=== PATIENT | female | born 1995 | race Caucasian/White ===

== ENCOUNTER 2016-12-29 17:25 | Emergency (ER) | payer BC ==
[~2016-12-29] VITALS: Ht 167.6 cm; Wt 56.7 kg
[2016-12-29 17:31] VITALS: TEMP 37.1; Ht 167.6 cm; Wt 56.7 kg
[2016-12-29] MEDS ORDERED: IBUP1TAB51 PO (18:03)
[2016-12-29] MEDS ORDERED: DOXE1TAB2 PO (18:03)
[2016-12-29] MEDS ORDERED: ONDA8TAB6 PO (18:03)
[2016-12-29] MEDS ORDERED: HYOS0.1255 PO (18:03)
[2016-12-29] MEDS ORDERED: AMPH10CA3 PO (18:03)
--- NOTE | 2016-12-29 19:11 | DIAGNOSTIC IMAGING REPORT ---
RIGHT FOOT 3 VIEWS CLINICAL HISTORY: Numbness, tingling, and pain in the right foot of over a months duration. FINDINGS: 3 views of the right foot are obtained. No prior studies are available for comparison at the time of dictation. The skeletal structures are well mineralized. No acute fracture is seen. There is chronic posterior matter deformity of the fourth metatarsal tarsal with a buttress plate in place. A buttress plate is also partially visualized in the distal fibula. Orthopedic hardware appears intact. The joint spaces of the foot appear preserved. An os trigonum is incidentally noted. The overlying soft tissues are within normal limits. IMPRESSION: 1. No acute bony abnormality is seen in the right foot. 2. Chronic posttraumatic and postoperative changes as above. Electronically signed by: Chris Luevano M.D. 12/29/2016 7:10 PM Dictated Date/Time: 12/29/2016 7:08 PM
[2016-12-29 20:00] VITALS: BP 128/50; PULSE 78; O2SAT 97
--- NOTE | 2016-12-29 23:40 | EMERGENCY ROOM VISIT NOTE ---
History First contact with patient: 17:42 Chief Complaint: FOOT PAIN Stated Complaint: FOOT NUMBNESS, PAIN, TINGLING, PURPLE IN COLOR History of Present Illness The patient is a 21 year old female who presents to the Emergency Room with complaints of right foot pain, purplish color of her toes and tingling. The patient reports that she did have 2 reconstructive surgeries of her ankle and foot approximately 3 years ago. She has had no persistent pain or other complications from her surgery. She has noticed developing numbness and tingling over the past month, and is now becoming more painful. The pain is worsened with ambulation. She denies any known trauma to the foot or ankle region. She denies any history of Raynaud's disease. She rates her discomfort a 4 out of 10. Review of Systems 10 system review was performed and was negative except for pertinent positives and negatives as indicated in history of present illness Past Medical/Surgical History Medical Problems: (1) Narcolepsy Surgical Problems: (1) History of foot surgery Family History Raynaud's syndrome Social History Smoking Status: Never Smoker Alcohol Use: none Marital Status: single Occupation Status: [employer] student Current/Historical Medications Scheduled Amphetamine-Dextroamphetamine 10MG (Adderall Xr 10MG), 10 MG PO DAILY Doxepin Hcl (Sleep) (Silenor), 1 TAB PO HS Ibuprofen-Famotidine (Duexis), 1 TAB PO DAILY Scheduled PRN Hyoscyamine Sulfate (Levsin), 1 TAB PO DAILY PRN for stomach pain Ondansetron Hcl (Zofran), 8 MG PO DAILY PRN for Nausea Allergies Coded Allergies: No Known Allergies (Unverified , 12/29/16) Physical Exam Vital Signs Date Time Temp Pulse Resp B/P Pulse Ox O2 Delivery O2 Flow Rate FiO2 12/29/16 20:00 78 16 128/50 97 Room Air 12/29/16 17:31 37.1 96 16 119/73 100 Room Air Pain Rating (0-10): 4.0 Physical Exam CONSTITUTIONAL: Healthy and well nourished. Alert and oriented X 3 with a flat affect. HEENT: Normocephalic, atraumatic. Pupils equal, round and reactive. NECK: Full active range of motion without discomfort. RESPIRATORY: Clear to auscultation bilaterally with no wheezing, crackles, rhonchi or stridor. CARDIOVASCULAR: Regular rate and rhythm with no murmurs, rubs or gallops. MUSCULOSKELETAL: Examination of the right foot and ankle region shows surgical incisions over the lateral malleolus and dorsal fourth metatarsal region. Surgical incisions have healed well. No palpable osteophyte formations noted. The patient has generalized tenderness to palpation through the posterior tibial and peroneal tendons. She also has mild tenderness over the lateral aspect of the foot. She has mild discoloration of the lateral foot and toes. Capillary refill of the toes is less than 2 seconds. Posterior tibialis and dorsalis pedis pulses are strong and bounding. Weightbearing worsens the patient's discomfort. No tenderness to palpation through the calcaneus or Achilles tendon. INTEGUMENTARY: No rash or other significant dermatologic conditions noted. NEUROLOGIC: Right ankle, foot and toes are sensory intact. Medical Decision & Procedures ER Provider Diagnostic Interpretation: My interpretation of right foot x-rays does not show any acute fractures or other concerning findings. Visible portions of the ankle were also normal. Radiologist report is as follows: RIGHT FOOT 3 VIEWS CLINICAL HISTORY: Numbness, tingling, and pain in the right foot of over a months duration. FINDINGS: 3 views of the right foot are obtained. No prior studies are available for comparison at the time of dictation. The skeletal structures are well mineralized. No acute fracture is seen. There is chronic posterior matter deformity of the fourth metatarsal tarsal with a buttress plate in place. A buttress plate is also partially visualized in the distal fibula. Orthopedic hardware appears intact. The joint spaces of the foot appear preserved. An os trigonum is incidentally noted. The overlying soft tissues are within normal limits. IMPRESSION: 1. No acute bony abnormality is seen in the right foot. 2. Chronic posttraumatic and postoperative changes as above. ED Course Patient history and physical exam were performed. Nurse's notes were reviewed. Vital signs were reviewed and were normal. The patient refused any analgesics while in the emergency department. X-rays of the right foot were normal. Prior surgical changes and hardware are noted. Possible causes for the patient's discomfort were discussed. This includes competitions from her surgery or even possibility of Raynaud's syndrome. The patient requested that I speak with her parents. The case was further discussed with the patient's father. He reports that her sister developed Raynaud's syndrome in her late teens. The patient is also currently being worked up for other possible rheumatologic conditions. I did explain to the father that her physical exam is suggestive of right not syndrome. However, I also explained that her symptoms could also be secondary to her foot surgery. The patient was offered crutches but she refused. She was instructed to limit weightbearing on the foot until she follows up with her orthopedic surgeon back home. The father reports that he would schedule an appointment. The patient was given a copy of her x-rays on disc. She was also provided local orthopedic contact information if she wishes to receive further follow-up care locally. She was encouraged to take ibuprofen or Tylenol as needed for pain. She was encouraged to keep the foot warm. It is to be rather cold over the next several days. Return to the emergency department for any significant and worsening changes. The patient voiced understanding of all discharge instructions, and rated her discomfort a 4 out of 10 at the time of discharge. Medical Decision See previous section Impression Primary Impression: Right foot pain Additional Impression: History of foot surgery Departure Information Dispostion Home / Self-Care Condition GOOD Referrals Biju Cyr D.O. Forms HOME CARE DOCUMENTATION FORM, IMPORTANT VISIT INFORMATION Patient Instructions My [employer] Additional Instructions Minimize weight on foot as much as possible. Do not apply ice to the foot. Keep foot warm. Suggest follow-up with your orthopedic surgeon over spring for reevaluation. You are welcome to follow-up with [facility] (Dr. Cyr) for further local follow-up as needed. Problem Qualifiers
== END 2016-12-29 20:00 | disposition home or self-care (01) ==
LOC: C.EDB 17:27 → C.EDD 20:00
DX: M79.671 Pain in right foot (principal); Z98.890 Other specified postprocedural states; G47.419 Narcolepsy without cataplexy; Z79.899 Other long term (current) drug therapy

== ENCOUNTER 2017-03-17 16:27 | Emergency (ER) | payer BC ==
[~2017-03-17] VITALS: Ht 167.6 cm; Wt 57.7 kg
[~2017-03-17 16:27] MED LIST: AMPH10CA3 PO; DOXE1TAB2 PO; HYOS0.1255 PO; IBUP1TAB51 PO; ONDA8TAB6 PO
[2017-03-17 16:31] VITALS: TEMP 37.6; Ht 167.6 cm; Wt 57.7 kg
[2017-03-17] MEDS ORDERED: SODIUM CHLORIDE 0.9% 1000ML 1,000 ML IV STA (17:31)
[2017-03-17] MEDS ORDERED: MoRPHine SULFATE 4 MG/ML 1 ML CARP\\VIAL IV STA (17:31)
[2017-03-17 17:39] VITALS: O2SAT 100
[2017-03-17 17:45] LABS: BASO % 0.4 %; BASO ABS # 0.02 K/uL (0-0.2); COMPLETE YES; EOS % 1.5 %; HEMATOCRIT 35.9 % (37-47); LYMPH % 26.6 %; LYMPH ABS # 1.45 K/uL (1.2-3.4); MEAN CELL VOLUME 92.1 fL (80-100); MEAN CORPUSCULAR HEMOGLOBIN 33.1 pg (25-34); MEAN CORPUSCULAR HGB CONC 35.9 g/dl (32-36); MEAN PLATELET VOLUME 9.8 fL (7.4-10.4); MONO % 5.5 %; PLATELET COUNT 205 K/uL (130-400); WHITE BLOOD COUNT 5.45 K/uL (4.8-10.8)
[2017-03-17 17:56] LABS: PROTHROMBIN TIME (PATIENT) 10.3 SECONDS (9.0-12.0)
[2017-03-17 18:03] LABS: BUN/CREATININE RATIO 11.6 (10-20); CALCIUM 9.2 mg/dl (8.5-10.1); CREATININE 0.89 mg/dl (0.60-1.20); POTASSIUM 3.6 mmol/L (3.5-5.1)
[2017-03-17 18:06] LABS: C-REACTIVE PROTEIN 0.44 mg/dl (0-0.29)
[2017-03-17] MEDS ORDERED: KETOROLAC TROMETHAMINE 30 MG/ML VIAL IV STA (18:15)
[2017-03-17] MEDS ORDERED: MELO15TA4 PO (18:17)
[2017-03-17] MEDS ORDERED: CYCL10TA6 PO (18:17)
--- NOTE | 2017-03-17 18:48 | DIAGNOSTIC IMAGING REPORT ---
CHEST 2 VIEWS ROUTINE HISTORY: Left-sided CHEST PAIN COMPARISON: None. FINDINGS: The lungs are clear. Cardiac silhouette is normal in size. No pleural effusions. No pneumothorax. Mild S-shaped scoliosis. IMPRESSION: No acute process. Electronically signed by: Marty Younger M.D. 03/17/2017 6:47 PM Dictated Date/Time: 03/17/2017 6:45 PM
[2017-03-17 18:59] LABS: PREG INTERNAL NEGATIVE QC NEG CLEAR BACKGROUND; PREG INTERNAL POSITIVE QC POS CONTROL LINE
[2017-03-17 19:57] LABS: URINE APPEARANCE CLEAR (CLEAR); URINE BILIRUBIN NEG (NEG); URINE COLOR YELLOW; URINE NITRITE NEG (NEG); URINE PH 7.5 (4.5-7.5); URINE SPECIFIC GRAVITY 1.013 (1.000-1.030); UROBILINOGEN NEG (NEG)
[2017-03-17 20:15] LABS: MANUAL MICROSCOPIC REQUIRED? NO; REVIEW REQ? NO
--- NOTE | 2017-03-17 20:39 | EMERGENCY ROOM VISIT NOTE ---
History First contact with patient: 17:15 Chief Complaint: CHEST PAIN Stated Complaint: CHEST PAIN Nursing Triage Summary: Burning left chest pain History of Present Illness The patient is a 21 year old female who presents to the Emergency Room with complaints of chest pain that started around 2 PM today. She describes the pain as burning and sharp, constant with intermittent worsening pains, left- sided chest, worse with taking a deep breath, lying flat, and movement, 7/10. She has not tried any medications today to treat her pain. She states that she has recently started seeing a housing and residence life director where she had a positive AMEE blood test, but has not yet received a diagnosis. She states that her housing and residence life director told her if she developed chest pain that she should go to the ER to be evaluated. She denies fevers, chills, cough, hemoptysis, shortness of breath, palpitations, syncope, leg pain or swelling, abdominal pain, nausea/vomiting, diarrhea, urinary complaints. She denies any trauma to the area. She denies any recent long travel, she does not use any exogenous estrogen. Review of Systems GENERAL: Denies fevers, chills, malaise, fatigue, unintentional weight changes. HEENT: Denies dizziness, visual problems, hearing loss, tinnitus. Denies difficulty swallowing or oral lesions. PULMONARY: Denies cough, shortness of breath, sputum production or hemoptysis. CARDIOVASCULAR: + Chest pain. Denies chest pain, palpitations, syncope, dyspnea on exertion, orthopnea or peripheral edema. GASTROINTESTINAL: Denies diarrhea, constipation, nausea, vomiting, or abdominal pain. GENITOURINARY: Denies dysuria, frequency, urgency or nocturia. NEUROLOGIC: Denies history of epilepsy, CVA, TIA or chronic headaches. MUSCULOSKELETAL: Denies history of joint tenderness/swelling. SKIN: Denies rashes or lesions. PSYCHIATRIC: Denies history of depression or mental illness. ENDOCRINE: Denies history of diabetes, thyroid disorders, abnormal hair growth or sexual dysfunction. Past Medical/Surgical History Medical Problems: (1) Narcolepsy Surgical Problems: (1) History of foot surgery Family History Raynaud's syndrome Social History Smoking Status: Never Smoker Alcohol Use: none Marital Status: single Occupation Status: [employer] student Current/Historical Medications Scheduled Amphetamine-Dextroamphetamine 10MG (Adderall Xr 10MG), 30 MG PO DAILY Cyclobenzaprine Hcl (Flexeril), 10 MG PO HS Doxepin Hcl (Sleep) (Silenor), 1 TAB PO HS Meloxicam (Meloxicam), 1 TAB PO DAILY Scheduled PRN Hyoscyamine Sulfate (Levsin), 1 TAB PO DAILY PRN for stomach pain Ondansetron Hcl (Zofran), 8 MG PO DAILY PRN for Nausea Allergies Coded Allergies: No Known Allergies (Unverified , 03/17/17) Physical Exam Vital Signs Date Time Temp Pulse Resp B/P Pulse Ox O2 Delivery O2 Flow Rate FiO2 03/17/17 21:00 94 18 130/78 100 Room Air 03/17/17 18:59 99 18 131/81 100 Room Air 03/17/17 17:39 100 Room Air 03/17/17 16:33 Room Air 03/17/17 16:31 37.6 118 16 135/87 100 Room Air Physical Exam CONSTITUTIONAL: No acute distress. Well appearing and well nourished. Alert and oriented X 4 with normal affect. HEENT: Normocephalic, atraumatic. Pupils equal, round and reactive to light, EOMI. TMs normal. Pharynx normal. Moist mucous membranes. NECK: Supple, full active range of motion without discomfort. RESPIRATORY: Clear to auscultation bilaterally with no wheezing, crackles, rhonchi or stridor. Equal expansion bilaterally. CARDIOVASCULAR: Regular rate and rhythm with no murmurs, rubs or gallops. Normal peripheral perfusion. No edema. CHEST WALL: No ecchymosis, no crepitus, no deformity. Tenderness to palpation of the left anterior chest wall, reproduces complaint. GASTROINTESTINAL: Soft, nontender, nondistended. Bowel sounds present in all quadrants. MUSCULOSKELETAL: Full range of motion of all joints without discomfort. INTEGUMENTARY: No rash or other significant dermatologic conditions noted. NEUROLOGIC: Cranial nerves II-XII grossly intact. No focal neurologic deficits noted. Medical Decision & Procedures ER Provider Diagnostic Interpretation: CHEST 2 VIEWS ROUTINE HISTORY: Left-sided CHEST PAIN COMPARISON: None. FINDINGS: The lungs are clear. Cardiac silhouette is normal in size. No pleural effusions. No pneumothorax. Mild S-shaped scoliosis. IMPRESSION: No acute process. Laboratory Results 03/17/17 17:34 Red Blood Count 3.90, Mean Corpuscular Volume 92.1, Mean Corpuscular Hemoglobin 33.1, Mean Corpuscular Hemoglobin Concent 35.9, Mean Platelet Volume 9.8, Neutrophils (%) (Auto) 66.0, Lymphocytes (%) (Auto) 26.6, Monocytes (%) (Auto) 5.5, Eosinophils (%) (Auto) 1.5, Basophils (%) (Auto) 0.4, Neutrophils # (Auto) 3.60, Lymphocytes # (Auto) 1.45, Monocytes # (Auto) 0.30, Eosinophils # (Auto) 0.08, Basophils # (Auto) 0.02 03/17/17 17:34 Test 03/17/17 17:34 03/17/17 17:39 03/17/17 19:30 White Blood Count 5.45 K/uL (4.8-10.8) Red Blood Count 3.90 M/uL (4.2-5.4) Hemoglobin 12.9 g/dL (12.0-16.0) Hematocrit 35.9 % (37-47) Mean Corpuscular Volume 92.1 fL (80-100) Mean Corpuscular Hemoglobin 33.1 pg (25-34) Mean Corpuscular Hemoglobin Concent 35.9 g/dl (32-36) Platelet Count 205 K/uL (130-400) Mean Platelet Volume 9.8 fL (7.4-10.4) Neutrophils (%) (Auto) 66.0 % Lymphocytes (%) (Auto) 26.6 % Monocytes (%) (Auto) 5.5 % Eosinophils (%) (Auto) 1.5 % Basophils (%) (Auto) 0.4 % Neutrophils # (Auto) 3.60 K/uL (1.4-6.5) Lymphocytes # (Auto) 1.45 K/uL (1.2-3.4) Monocytes # (Auto) 0.30 K/uL (0.11-0.59) Eosinophils # (Auto) 0.08 K/uL (0-0.5) Basophils # (Auto) 0.02 K/uL (0-0.2) RDW Standard Deviation 41.8 fL (36.4-46.3) RDW Coefficient of Variation 12.3 % (11.5-14.5) Immature Granulocyte % (Auto) 0.0 % Immature Granulocyte # (Auto) 0.00 K/uL (0.00-0.02) Prothrombin Time 10.3 SECONDS (9.0-12.0) Prothromb Time International Ratio 1.0 (0.9-1.1) Activated Partial Thromboplast Time 25.8 SECONDS (21.0-31.0) Partial Thromboplastin Ratio 1.0 Anion Gap 6.0 mmol/L (3-11) Est Creatinine Clear Calc Drug Dose 91.1 ml/min Estimated GFR () 107.4 Estimated GFR (Non- 92.6 BUN/Creatinine Ratio 11.6 (10-20) Calcium Level 9.2 mg/dl (8.5-10.1) Total Bilirubin 0.2 mg/dl (0.2-1) Direct Bilirubin 0.1 mg/dl (0-0.2) Aspartate Amino Transf (AST/SGOT) 12 U/L (15-37) Alanine Aminotransferase (ALT/SGPT) 19 U/L (12-78) Alkaline Phosphatase 59 U/L (45-117) C-Reactive Protein 0.44 mg/dl (0-0.29) Total Protein 7.7 gm/dl (6.4-8.2) Albumin 4.2 gm/dl (3.4-5.0) Lipase 106 U/L (73-393) Human Chorionic Gonadotropin, Qual NEG (NEG) Bedside D-Dimer 62 ng/mlFEU (0-450) Bedside Troponin I 0.000 ng/ml (0-0.045) Urine Color YELLOW Urine Appearance CLEAR (CLEAR) Urine pH 7.5 (4.5-7.5) Urine Specific [place] 1.013 (1.000-1.030) Urine Protein NEG (NEG) Urine Glucose (UA) NEG (NEG) Urine Ketones NEG (NEG) Urine Occult Blood NEG (NEG) Urine Nitrite NEG (NEG) Urine Bilirubin NEG (NEG) Urine Urobilinogen NEG (NEG) Urine Leukocyte Esterase NEG (NEG) Medications Administered Medications (Trade) Dose Ordered Sig/Dylan Route Start Time Stop Time Status Last Admin Dose Admin Sodium Chloride (Nss 1000ml) 1,000 ml @ 999 mls/hr Q1H1M STAT IV 03/17/17 17:31 03/17/17 18:31 DC 03/17/17 17:31 999 MLS/HR Morphine Sulfate (MoRPHine SULFATE INJ) 4 mg NOW STAT IV 03/17/17 17:31 03/17/17 17:37 DC 03/17/17 17:31 4 MG Ketorolac Tromethamine (Toradol Inj) 15 mg NOW STAT IV 03/17/17 18:15 03/17/17 18:16 DC 03/17/17 18:15 15 MG Acetaminophen/ Hydrocodone Bitart ([place] 5/325 Tab) 1 tab NOW STAT PO 03/17/17 20:46 03/17/17 20:47 DC 03/17/17 20:59 1 TAB Acetaminophen/ Hydrocodone Bitart ([place] 5/325mg Home Pack) 1 homepack UD ONCE PO 03/17/17 21:00 03/17/17 21:01 DC 03/17/17 20:59 1 HOMEPACK ECG Indication: chest pain Rate (beats per minute): 105 Rhythm: sinus tachycardia Findings: no acute ischemic change, no ectopy, other (possible right atrial enlargement) Comparison ECG Date: no prior available Medical Decision CC: Patient presenting with complaint of chest pain Interpretation of Labs: No leukocytosis, no anemia, no significant electrolyte abnormalities, normal renal function, normal liver enzymes, negative troponin, negative d-dimer. Differential Diagnosis: Includes, but not limited to pericarditis, myocarditis, endocarditis, anxiety, musculoskeletal pain, pulmonary embolism, pneumothorax, costochondritis, pneumonia; less likely ACS. Summary: Patient was evaluated at bedside, history of physical exam performed. Patient is alert and in no acute distress. She describes a pleuritic type chest pain that also has a musculoskeletal component. She is concerned for possible lupus related issue with chest pain. Normal heart sounds, no murmur or rub heard, lungs clear. Orders were placed at bedside for labs, UA, IV fluid bolus, IV toradol to evaluate and treat for possible pericarditis/myocarditis, pleuritis, D-dimer to eval for possible PE. Unable to perc out due to tachycardia, but otherwise low well's score without any other risk factors for PE. Patient discussed with Dr. Jesus, who agrees with my assessment and plan. Labs reviewed, interpretation as above, no acute abnormalities. Chest x-ray is unremarkable, no cardiomegaly, no pneumonia. EKG shows sinus tachycardia no ischemic changes, no findings concerning for pericarditis/myocarditis. Troponin is negative, d-dimer is negative. I suspect patient most likely has pleuritic pain in combination with costochondritis given the reproducibility of her pain with palpation. Patient reports minimal pain improvement with Toradol, therefore a dose of [place] was given and she was provided with [place] take home pack for continued pain management as needed. Patient was updated on all results and plan for discharge, all questions answered and I also spoke over the phone with her father and answered all of his questions. Patient was instructed to follow closely with her PCP and housing and residence life director, and given return precautions, she verbalized understanding. Impression Primary Impression: Left sided chest pain Additional Impression: Pleurisy Departure Information Dispostion Home / Self-Care Condition GOOD Referrals Elli Solis M.D. (PCP) Patient Instructions ED Chest Pain Pleurisy, My [facility] Additional Instructions You may continue to take her prescribed Mobic daily to help treat your chest pain. You may take the [place] one tablet every 6 hours as needed for severe pain. Do not drive, operate machinery, or drink alcohol while taking this as it may make you drowsy. If you need long-term pain control with narcotics, he will have to receive a prescription for your primary care doctor. You may also try ice or heat to the area of chest pain for comfort. Drink plenty of fluids to stay well hydrated. Follow up closely with your PCP and your housing and residence life director in the next few days. Please return to the ER for worsening symptoms, including severe worsening chest pain, shortness of breath, severe dizziness or passing out, vomiting or coughing up blood, fevers/chills/feeling ill, or any other concerns. Problem Qualifiers
[2017-03-17] MEDS ORDERED: HYDROCODONE/ACETAMOPHEN 5/325MG TAB PO STA (20:46)
[2017-03-17 21:00] VITALS: BP 130/78; PULSE 94; O2SAT 100
[2017-03-17] MEDS ORDERED: NORCO 5/325MG HOME PACK PO ONE (21:00)
== END 2017-03-17 21:11 | disposition home or self-care (01) ==
LOC: C.EDB 16:29 → C.EDC 21:11
DX: G47.419 Narcolepsy without cataplexy (principal); R07.9 Chest pain, unspecified; R09.1 Pleurisy

== ENCOUNTER 2017-07-14 11:26 | Emergency (ER) | payer BC ==
[~2017-07-14] VITALS: Ht 167.6 cm; Wt 55.7 kg
[~2017-07-14 11:26] MED LIST changes: +CYCL10TA6 PO; -IBUP1TAB51 PO; +MELO15TA4 PO
[2017-07-14 11:32] VITALS: TEMP 36.7; Ht 167.6 cm; Wt 55.7 kg
[2017-07-14] MEDS ORDERED: SODIUM CHLORIDE 0.9% 1000ML 1,000 ML IV STA (11:54)
[2017-07-14] MEDS ORDERED: FENTANYL CITRATE INJ 50 MCG/1 ML 2 ML VIAL IV STA ×2 (11:54→14:41)
[2017-07-14] MEDS ORDERED: ONDANSETRON INJ 2 MG/ML 2 ML VIAL IV STA (11:54)
[2017-07-14] MEDS ORDERED: MISCCAP80 PO (11:57)
[2017-07-14] MEDS ORDERED: HYDR200T5 PO (11:57)
[2017-07-14] MEDS ORDERED: AMPH20CA3 PO (11:57)
[2017-07-14] MEDS ORDERED: AMPH20TA2 PO (11:57)
[2017-07-14] MEDS ORDERED: CHOL100010 PO (11:57)
--- NOTE | 2017-07-14 12:09 | EMERGENCY ROOM VISIT NOTE ---
History Report prepared by Lee Ann: Ally Mujica Under the Supervision of: Dr. Tyrone Leiva M.D. First contact with patient: 11:46 Chief Complaint: ABDOMINAL PAIN Stated Complaint: LRQ PAIN, NAUSEA, BACK PAIN Nursing Triage Summary: RLQ abdominal pain for 3 days ago. Nausea, constipation. History of Present Illness The patient is a 21 year old female who presents to the Emergency Room with complaints of waxing and waning right lower quadrant abdominal pain that began three days ago. She currently rates her discomfort as a 7/10 in severity. The patient reports that her last bowel movement was three days ago, noting that it was diarrhea in consistency, but now reports constipation. She states that her pain is always present, noting sometimes that her pain is worse than other times. The patient reports a stabbing pain that lasts three hours at a time. She reports nausea, but denies any vomiting. The patient reports a decrease in appetite. She reports a history of a connective tissue disease, noting that she follows with a professional nurse. The patient states that she has a history of a kidney infection. She denies any chance of , noting that her last menstrual period was July 03. The patient denies any hematuria or burning with urination. She denies ever having pain like this in the past. The patient denies taking any OTC medications for her pain. She states that due to her connective tissue disease she cannot take Ibuprofen. The patient states that she takes Meloxicam daily. She denies any history of abdominal surgeries. The patient states that on her way to the emergency department today her pain worsened with bumps in the road. She additionally notes that her mother and sister have had ovarian cysts in the past, but denies any personal history of ovarian cysts. The patient states that she went Glutan and dairy free this summer to help with inflammation. She states that this weekend she ate both for the first time, noting that she initially thought that her symptoms were more bloating. The patient states that she is sexually active. She denies any vaginal discharge, odor, or itching. Source of History: patient Onset: three days Position: abdomen (RLQ) Symptom Intensity: 7/10 Quality: stabbing Timing: waxes/wanes Associated Symptoms: + nausea, + diarrhea, No vomiting, No urinary symptoms Note: Associated Symptoms: constipation, decrease in appetite Review of Systems See HPI for pertinent positives and negatives. A total of ten systems were reviewed and were otherwise negative. Past Medical & Surgical Medical Problems: (1) Asthma (2) Bronchitis (3) Kidney infection (4) Narcolepsy (5) Undifferentiated connective tissue disease Surgical Problems: (1) History of foot surgery Family History Cancer Heart disease Hypertension Raynaud's syndrome Social History Smoking Status: Never Smoker Smokeless Tobacco Use: No Alcohol Use: occasionally Marital Status: single Occupation Status: [employer] student Current/Historical Medications Scheduled Amphetamine-Dextroamphetamine 20MG (Adderall 20MG), 20 MG PO DAILY Amphetamine-Dextroamphetamine 20MG (Adderall Xr 20MG), 20 MG PO DAILY Cholecalciferol (Vitamin D), 3,000 INTER.UNIT PO DAILY Cyclobenzaprine Hcl (Flexeril), 10 MG PO HS Doxepin Hcl (Sleep) (Silenor), 1 TAB PO HS Hydroxychloroquine Sulfate (Plaquenil), 200 MG PO DAILY Meloxicam (Meloxicam), 1 TAB PO DAILY Probiotic Product (Probiotic), 1 CAP PO DAILY Scheduled PRN Hyoscyamine Sulfate (Levsin), 1 TAB PO DAILY PRN for stomach pain Ondansetron Hcl (Zofran), 8 MG PO DAILY PRN for Nausea Allergies Coded Allergies: No Known Allergies (Unverified , 03/17/17) Physical Exam Vital Signs Date Time Temp Pulse Resp B/P (MAP) Pulse Ox O2 Delivery O2 Flow Rate FiO2 07/14/17 17:00 86 16 98/52 100 07/14/17 15:50 75 16 101/63 100 Room Air 07/14/17 15:24 74 16 101/63 100 Room Air 07/14/17 14:42 75 16 111/64 100 Room Air 07/14/17 12:54 81 07/14/17 12:44 85 17 112/61 100 Room Air 07/14/17 12:44 100 Room Air 07/14/17 11:32 36.7 99 16 138/97 100 Room Air Physical Exam GENERAL: Awake, alert, uncomfortable-appearing, in no distress HENT: Normocephalic, atraumatic. Oropharynx unremarkable. EYES: Normal conjunctiva. Sclera non-icteric. NECK: Supple. No nuchal rigidity. FROM. No JVD. RESPIRATORY: Clear to auscultation. CARDIAC: Regular rate, normal rhythm. Extremities warm and well perfused. Pulses equal. ABDOMEN: Soft, non-distended. Tender to palpation in the right lower quadrant at McBurney's point, equivocal Rovsing's sign, negative Yousif's sign. No rebound or guarding. No masses. RECTAL: Deferred. MUSCULOSKELETAL: Chest examination reveals no tenderness. The back is symmetrical on inspection without obvious abnormality. There is no CVA tenderness to palpation. No joint edema. LOWER EXTREMITIES: Calves are equal size bilaterally and non-tender. No edema. No discoloration. NEURO: Normal sensorium. No sensory or motor deficits noted. SKIN: No rash or jaundice noted. Medical Decision & Procedures ER Provider Diagnostic Interpretation: Radiology results as stated below per my review and radiologist interpretation: PELVIC COMPLETE NON OB CLINICAL HISTORY: NO TV PAIN. NAUSEA. COMPARISON STUDY: None FINDINGS: The uterus measured 6.6 cm. The endometrial stripe measured 5 mm. The right ovary measured 4.4 cm with normal vascular flow. 3.5 cm cyst.. The left ovary measured not well seen. There is no ultrasonographic evidence of ovarian torsion. It should be noted that ovarian torsion can be present with normal Doppler ultrasonographic findings. There was no evidence of pathologic free pelvic fluid. IMPRESSION: 3.5 cm right ovarian cyst. Otherwise negative study. The above report was generated using voice recognition software. It may contain grammatical, syntax or spelling errors. Electronically signed by: Abdelrahman Fonseca M.D. 07/14/2017 2:31 PM Dictated Date/Time: 07/14/2017 2:30 PM Laboratory Results 07/14/17 12:24 Red Blood Count 4.30, Mean Corpuscular Volume 93.3, Mean Corpuscular Hemoglobin 31.6, Mean Corpuscular Hemoglobin Concent 33.9, Mean Platelet Volume 9.9, Neutrophils (%) (Auto) 59.7, Lymphocytes (%) (Auto) 29.5, Monocytes (%) (Auto) 8.2, Eosinophils (%) (Auto) 2.1, Basophils (%) (Auto) 0.5, Neutrophils # (Auto) 2.27, Lymphocytes # (Auto) 1.12, Monocytes # (Auto) 0.31, Eosinophils # (Auto) 0.08, Basophils # (Auto) 0.02 07/14/17 12:24 Test 07/14/17 11:45 07/14/17 12:24 Urine Color YELLOW Urine Appearance CLEAR (CLEAR) Urine pH 8.0 (4.5-7.5) Urine Specific [place] 1.015 (1.000-1.030) Urine Protein NEG (NEG) Urine Glucose (UA) NEG (NEG) Urine Ketones NEG (NEG) Urine Occult Blood NEG (NEG) Urine Nitrite NEG (NEG) Urine Bilirubin NEG (NEG) Urine Urobilinogen NEG (NEG) Urine Leukocyte Esterase NEG (NEG) Urine WBC (Auto) 0 /hpf (0-5) Urine RBC (Auto) 0-4 /hpf (0-4) Urine Hyaline Casts (Auto) 0 /lpf (0-5) Urine Epithelial Cells (Auto) 5-10 /lpf (0-5) Urine Bacteria (Auto) NEG (NEG) Urine Test NEG (NEG) White Blood Count 3.80 K/uL (4.8-10.8) Red Blood Count 4.30 M/uL (4.2-5.4) Hemoglobin 13.6 g/dL (12.0-16.0) Hematocrit 40.1 % (37-47) Mean Corpuscular Volume 93.3 fL (80-100) Mean Corpuscular Hemoglobin 31.6 pg (25-34) Mean Corpuscular Hemoglobin Concent 33.9 g/dl (32-36) Platelet Count 218 K/uL (130-400) Mean Platelet Volume 9.9 fL (7.4-10.4) Neutrophils (%) (Auto) 59.7 % Lymphocytes (%) (Auto) 29.5 % Monocytes (%) (Auto) 8.2 % Eosinophils (%) (Auto) 2.1 % Basophils (%) (Auto) 0.5 % Neutrophils # (Auto) 2.27 K/uL (1.4-6.5) Lymphocytes # (Auto) 1.12 K/uL (1.2-3.4) Monocytes # (Auto) 0.31 K/uL (0.11-0.59) Eosinophils # (Auto) 0.08 K/uL (0-0.5) Basophils # (Auto) 0.02 K/uL (0-0.2) RDW Standard Deviation 44.4 fL (36.4-46.3) RDW Coefficient of Variation 13.0 % (11.5-14.5) Immature Granulocyte % (Auto) 0.0 % Immature Granulocyte # (Auto) 0.00 K/uL (0.00-0.02) Anion Gap 4.0 mmol/L (3-11) Est Creatinine Clear Calc Drug Dose 93.2 ml/min Estimated GFR () 115.1 Estimated GFR (Non- 99.4 BUN/Creatinine Ratio 13.7 (10-20) Calcium Level 9.6 mg/dl (8.5-10.1) Total Bilirubin 0.5 mg/dl (0.2-1) Direct Bilirubin 0.2 mg/dl (0-0.2) Aspartate Amino Transf (AST/SGOT) 14 U/L (15-37) Alanine Aminotransferase (ALT/SGPT) 17 U/L (12-78) Alkaline Phosphatase 48 U/L (45-117) Total Protein 7.3 gm/dl (6.4-8.2) Albumin 4.1 gm/dl (3.4-5.0) Lipase 141 U/L (73-393) Laboratory results reviewed by me Medications Administered Medications (Trade) Dose Ordered Sig/Dylan Route Start Time Stop Time Status Last Admin Dose Admin Sodium Chloride 1,000 ml @ 999 mls/hr Q1H1M STAT IV 07/14/17 11:54 07/14/17 12:54 DC 07/14/17 12:35 999 MLS/HR Fentanyl Citrate (Fentanyl Inj) 50 mcg NOW STAT IV 07/14/17 11:54 07/14/17 12:04 DC 07/14/17 12:35 50 MCG Ondansetron HCl (Zofran Inj) 4 mg NOW STAT IV 07/14/17 11:54 07/14/17 12:04 DC 07/14/17 12:36 4 MG Fentanyl Citrate (Fentanyl Inj) 50 mcg NOW STAT IV 07/14/17 14:41 07/14/17 14:42 DC 07/14/17 15:26 50 MCG ED Course 1150: The patient was evaluated in room C8. A complete history and physical exam was performed. 1154: Ordered Zofran Inj 4 mg IV, Fentanyl Inj 50 mcg IV, Sodium Chloride 1000 ml @ 999 mls/hr IV. Medical Decision I reviewed the patient's past medical history, medications, and the nursing notes as described above. The patient's presentation and history were concerning for torsion, ectopic , hemorrhagic cyst, STD, PID, appendicitis, diverticulitis, renal stone , UTI. The patient is a 21 y/o woman with pmhx of IBS, connective tissue d/o on Plaquenil and Meloxicam presents to the ED with RLQ abd pain per HPI. On arrival the patient appears uncomfortable but in NAD. WBC decreased but labs otherwise, unremarkable. TVUS with right ovarian cyst however, given the patient 's report of severe pain despite medication CT was ordered to r/o appendicitis and was negative. Patient denies any sx and declines pelvic exam. Patient educated on possibility of intermittent torsion and signs and sx to monitor. Findings and plan for follow-up review with patient. Patient requesting pain medication for home however I explained that in the absence of objective findings to suggest emergent condition narcotics not indicated. Patient agreeable and d/c'd per discharge instructions. Medication Reconcilliation Current Medication List: was personally reviewed by me Impression Primary Impression: Ovarian cyst Additional Impression: Right lower quadrant abdominal pain Scribe Attestation The scribe's documentation has been prepared under my direction and personally reviewed by me in its entirety. I confirm that the note above accurately reflects all work, treatment, procedures, and medical decision making performed by me. Departure Information Dispostion Home / Self-Care Referrals No Doctor, Assigned (PCP) Patient Instructions Abdominal Pain - [facility], ED Cyst Ovarian, My [facility] Additional Instructions Please follow up with your physiology teacher in the next 1-3 days for re-evaluation and repeat lab tests. Your symptoms are likely due to your ovarian cyst. Your white blood cells were slightly low. Otherwise, your exam, ultrasound, CT scan and lab results did not show signs of an emergent condition at this time. Acetaminophen for pain as needed. Heating pad at 20 minute intervals for additional pain relief as needed. Return to the emergency department for worsening symptoms as described in the accompanying instructions. Problem Qualifiers
[2017-07-14 12:37] LABS: BASO % 0.5 %; BASO ABS # 0.02 K/uL (0-0.2); COMPLETE YES; EOS % 2.1 %; HEMATOCRIT 40.1 % (37-47); LYMPH % 29.5 %; LYMPH ABS # 1.12 K/uL (1.2-3.4); MEAN CELL VOLUME 93.3 fL (80-100); MEAN CORPUSCULAR HEMOGLOBIN 31.6 pg (25-34); MEAN CORPUSCULAR HGB CONC 33.9 g/dl (32-36); MEAN PLATELET VOLUME 9.9 fL (7.4-10.4); MONO % 8.2 %; NEUT % 59.7 %; PLATELET COUNT 218 K/uL (130-400)
[2017-07-14 12:41] LABS: URINE APPEARANCE CLEAR (CLEAR); URINE BILIRUBIN NEG (NEG); URINE COLOR YELLOW; URINE NITRITE NEG (NEG); URINE SPECIFIC GRAVITY 1.015 (1.000-1.030); UROBILINOGEN NEG (NEG); ZZUR CULT IF INDIC CLEAN CATCH NO
[2017-07-14 12:44] VITALS: O2SAT 100
[2017-07-14 12:57] LABS: MANUAL MICROSCOPIC REQUIRED? NO; REVIEW REQ? NO; SULFASALICYLIC ACID NEG (NEG)
[2017-07-14 13:04] LABS: BUN/CREATININE RATIO 13.7 (10-20); CALCIUM 9.6 mg/dl (8.5-10.1); CREATININE 0.84 mg/dl (0.60-1.20); POTASSIUM 3.8 mmol/L (3.5-5.1)
--- NOTE | 2017-07-14 14:33 | DIAGNOSTIC IMAGING REPORT ---
PELVIC COMPLETE NON OB CLINICAL HISTORY: NO TV PAIN. NAUSEA. COMPARISON STUDY: None FINDINGS: The uterus measured 6.6 cm. The endometrial stripe measured 5 mm. The right ovary measured 4.4 cm with normal vascular flow. 3.5 cm cyst.. The left ovary measured not well seen. There is no ultrasonographic evidence of ovarian torsion. It should be noted that ovarian torsion can be present with normal Doppler ultrasonographic findings. There was no evidence of pathologic free pelvic fluid. IMPRESSION: 3.5 cm right ovarian cyst. Otherwise negative study. The above report was generated using voice recognition software. It may contain grammatical, syntax or spelling errors. Electronically signed by: Abdelrahman Fonseca M.D. 07/14/2017 2:31 PM Dictated Date/Time: 07/14/2017 2:30 PM
[2017-07-14] MEDS ORDERED: OPTIRAY 320 IV PRN (15:00)
--- NOTE | 2017-07-14 15:51 | DIAGNOSTIC IMAGING REPORT ---
CT OF THE ABDOMEN AND PELVIS WITH CONTRAST CLINICAL HISTORY: Right lower quadrant pain and nausea. COMPARISON STUDY: Pelvic ultrasound performed July 14, 2017. TECHNIQUE: Following IV administration of 119 mL of Optiray-320, axial images of the abdomen and pelvis were obtained from the lung bases to the proximal femurs. Images were reviewed in the axial, sagittal, and coronal planes. IV contrast was administered without complication. A dose lowering technique was utilized adhering to the principles of ALARA. CT DOSE: 326.94 mGycm FINDINGS: The liver, spleen, adrenal glands, kidneys and pancreas are normal. There is no biliary or pancreatic ductal dilatation. There is no peripancreatic or pericholecystic infiltration. No hydronephrosis is present and both nephrograms are symmetric. Caliber and wall thickness of small and large bowel are normal. The appendix is normal. There is a 3.2 cm right ovarian cyst. A small amount of low-attenuation free fluid is noted within the pelvis. No lymphadenopathy or abscess is present. There are no suspicious osseous lesions. IMPRESSION: 1. Normal appendix. 2. 3.2 cm right ovarian cyst. 3. Minimal low-attenuation free fluid within the pelvis. Electronically signed by: Kavin Willett M.D. 07/14/2017 3:50 PM Dictated Date/Time: 07/14/2017 3:45 PM
[2017-07-14 17:00] VITALS: BP 98/52; PULSE 86; O2SAT 100
== END 2017-07-14 17:04 | disposition home or self-care (01) ==
LOC: C.EDB 11:27 → C.EDC 17:04
DX: N83.201 Unspecified ovarian cyst, right side (principal); R10.31 Right lower quadrant pain; J45.909 Unspecified asthma, uncomplicated; Z86.19 Personal history of other infectious and parasitic diseases; Z98.890 Other specified postprocedural states; Z79.899 Other long term (current) drug therapy; Z80.9 Family history of malignant neoplasm, unspecified; Z82.49 Family history of ischemic heart disease and other diseases of the circulatory system

== ENCOUNTER 2017-07-30 21:31 | Emergency (ER) | payer BC ==
[~2017-07-30] VITALS: Ht 167.6 cm; Wt 56.7 kg
[~2017-07-30 21:31] MED LIST changes: -AMPH10CA3 PO; +AMPH20CA3 PO; +AMPH20TA2 PO; +CHOL100010 PO; +HYDR200T5 PO; +MISCCAP80 PO
[2017-07-30 21:46] VITALS: TEMP 36.8; Ht 167.6 cm; Wt 56.7 kg
[2017-07-30] MEDS ORDERED: ONDANSETRON INJ 2 MG/ML 2 ML VIAL IV STA (22:04)
[2017-07-30] MEDS ORDERED: MoRPHine SULFATE 4 MG/ML 1 ML CARP\\VIAL IV ONE (22:15)
[2017-07-30] MEDS ORDERED: SODIUM CHLORIDE 0.9% 1000ML 1,000 ML IV ONE (22:15)
[2017-07-30 22:19] LABS: BASO % 0.3 %; BASO ABS # 0.02 K/uL (0-0.2); COMPLETE YES; EOS % 1.8 %; HEMATOCRIT 38.5 % (37-47); IG% 0.3 %; LYMPH % 29.5 %; LYMPH ABS # 1.92 K/uL (1.2-3.4); MEAN CELL VOLUME 92.3 fL (80-100); MEAN CORPUSCULAR HEMOGLOBIN 31.9 pg (25-34); MEAN CORPUSCULAR HGB CONC 34.5 g/dl (32-36); MEAN PLATELET VOLUME 9.7 fL (7.4-10.4); MONO % 9.2 %; NEUT % 58.9 %; PLATELET COUNT 227 K/uL (130-400); RED BLOOD COUNT 4.17 M/uL (4.2-5.4); WHITE BLOOD COUNT 6.51 K/uL (4.8-10.8)
[2017-07-30 22:25] LABS: URINE APPEARANCE CLEAR (CLEAR); URINE BILIRUBIN NEG (NEG); URINE COLOR YELLOW; URINE NITRITE NEG (NEG); URINE PH 7.5 (4.5-7.5); URINE SPECIFIC GRAVITY 1.022 (1.000-1.030); UROBILINOGEN NEG (NEG); ZZUR CULT IF INDIC CLEAN CATCH NO
[2017-07-30 22:36] LABS: MANUAL MICROSCOPIC REQUIRED? NO; REVIEW REQ? NO
[2017-07-30 22:39] LABS: ALB/GLOB RATIO 1.3 (0.9-2); BUN/CREATININE RATIO 22.7 (10-20); CALCIUM 9.6 mg/dl (8.5-10.1); CREATININE 0.92 mg/dl (0.60-1.20); POTASSIUM 3.8 mmol/L (3.5-5.1)
[2017-07-30] MEDS ORDERED: OPTIRAY 320 IV PRN (23:00)
[2017-07-31] MEDS ORDERED: ONDANSETRON INJ 2 MG/ML 2 ML VIAL IV STA (00:20)
[2017-07-31 01:04] VITALS: BP 107/75; PULSE 82; O2SAT 100
--- NOTE | 2017-07-31 03:30 | EMERGENCY ROOM VISIT NOTE ---
History First contact with patient: 21:54 Chief Complaint: ABDOMINAL PAIN Stated Complaint: LRQ PAIN,NAUSEA,VOM,BACK AND LEG PAIN Nursing Triage Summary: Triage Notes: RLQ abd pain with n/v. H/O ovarian cyst History of Present Illness The patient is a 21 year old female who presents to the Emergency Room with complaints of right lower quadrant abdominal pain, nausea, and vomiting. The patient reports a history of ovarian cysts, and states this feels identical to previous episodes. She has had pain for the past 2-3 days. She usually takes Mobic, but has not taken that today. She has not had fever, chills, chest pain , or difficulty using the bathroom. No vaginal irritation or discharge. The patient was previously on control pills up until earlier this year, when she stopped them. After stopping the control it seems that the symptoms have worsened. She does not have a history of abdominal surgery. She rates her pain an 8/10. Review of Systems More than 10 systems were reviewed and otherwise negative with the exception of history of present illness. Past Medical/Surgical History Medical Problems: (1) Asthma (2) Bronchitis (3) Kidney infection (4) Narcolepsy (5) Undifferentiated connective tissue disease Surgical Problems: (1) History of foot surgery Family History Cancer Heart disease Hypertension Raynaud's syndrome Social History Smoking Status: Never Smoker Alcohol Use: occasionally Marital Status: single Occupation Status: [employer] student Current/Historical Medications Scheduled Amphetamine-Dextroamphetamine 20MG (Adderall 20MG), 20 MG PO DAILY Amphetamine-Dextroamphetamine 20MG (Adderall Xr 20MG), 20 MG PO DAILY Cholecalciferol (Vitamin D), 3,000 INTER.UNIT PO DAILY Cyclobenzaprine Hcl (Flexeril), 10 MG PO HS Doxepin Hcl (Sleep) (Silenor), 1 TAB PO HS Hydroxychloroquine Sulfate (Plaquenil), 200 MG PO DAILY Meloxicam (Meloxicam), 1 TAB PO DAILY Probiotic Product (Probiotic), 1 CAP PO DAILY Scheduled PRN Hyoscyamine Sulfate (Levsin), 1 TAB PO DAILY PRN for stomach pain Ondansetron Hcl (Zofran), 8 MG PO DAILY PRN for Nausea Physical Exam Vital Signs Date Time Temp Pulse Resp B/P (MAP) Pulse Ox O2 Delivery O2 Flow Rate FiO2 07/31/17 01:04 82 18 107/75 100 07/30/17 23:05 83 20 120/73 100 Room Air 07/30/17 21:46 36.8 89 20 126/78 100 Room Air Physical Exam VITALS: Vitals are noted on the nurse's note and reviewed by myself. Vital signs stable. GENERAL: Well-developed, well-nourished, white female, who is in no acute distress and resting comfortably. Patient is cooperative with the examination. HEART: Regular rate and rhythm without murmurs gallops or rubs. LUNGS: Clear to auscultation bilaterally without wheezes, rales or rhonchi. No retractions or accessory muscle use. ABDOMEN: Positive normal bowel sounds x 4. Soft with bilateral lower abdominal tenderness. No rebound or guarding. No CVA tenderness. MUSCULOSKELETAL: No muscle atrophy, erythema, or edema noted. Full range of motion without joint tenderness in all extremities. Medical Decision & Procedures ER Provider Diagnostic Interpretation: Preliminary Findings Only See Final Report For Complete Findings US PELVIS: Endometrial thickness measures 4 mm. Normal Doppler flow bilateral ovaries. No adnexal mass or free fluid. Limited debris identified in the urinary bladder; consider correlation with UA. Ureteral jets noted bilaterally. Comparison study dated 07/14/2017 Laboratory Results 07/30/17 22:10 Red Blood Count 4.17, Mean Corpuscular Volume 92.3, Mean Corpuscular Hemoglobin 31.9, Mean Corpuscular Hemoglobin Concent 34.5, Mean Platelet Volume 9.7, Neutrophils (%) (Auto) 58.9, Lymphocytes (%) (Auto) 29.5, Monocytes (%) (Auto) 9.2, Eosinophils (%) (Auto) 1.8, Basophils (%) (Auto) 0.3, Neutrophils # (Auto) 3.83, Lymphocytes # (Auto) 1.92, Monocytes # (Auto) 0.60, Eosinophils # (Auto) 0.12, Basophils # (Auto) 0.02 07/30/17 22:10 Test 07/30/17 22:00 07/30/17 22:10 Urine Color YELLOW Urine Appearance CLEAR (CLEAR) Urine pH 7.5 (4.5-7.5) Urine Specific [place] 1.022 (1.000-1.030) Urine Protein NEG (NEG) Urine Glucose (UA) NEG (NEG) Urine Ketones NEG (NEG) Urine Occult Blood NEG (NEG) Urine Nitrite NEG (NEG) Urine Bilirubin NEG (NEG) Urine Urobilinogen NEG (NEG) Urine Leukocyte Esterase NEG (NEG) Urine Test NEG (NEG) White Blood Count 6.51 K/uL (4.8-10.8) Red Blood Count 4.17 M/uL (4.2-5.4) Hemoglobin 13.3 g/dL (12.0-16.0) Hematocrit 38.5 % (37-47) Mean Corpuscular Volume 92.3 fL (80-100) Mean Corpuscular Hemoglobin 31.9 pg (25-34) Mean Corpuscular Hemoglobin Concent 34.5 g/dl (32-36) Platelet Count 227 K/uL (130-400) Mean Platelet Volume 9.7 fL (7.4-10.4) Neutrophils (%) (Auto) 58.9 % Lymphocytes (%) (Auto) 29.5 % Monocytes (%) (Auto) 9.2 % Eosinophils (%) (Auto) 1.8 % Basophils (%) (Auto) 0.3 % Neutrophils # (Auto) 3.83 K/uL (1.4-6.5) Lymphocytes # (Auto) 1.92 K/uL (1.2-3.4) Monocytes # (Auto) 0.60 K/uL (0.11-0.59) Eosinophils # (Auto) 0.12 K/uL (0-0.5) Basophils # (Auto) 0.02 K/uL (0-0.2) RDW Standard Deviation 45.9 fL (36.4-46.3) RDW Coefficient of Variation 13.7 % (11.5-14.5) Immature Granulocyte % (Auto) 0.3 % Immature Granulocyte # (Auto) 0.02 K/uL (0.00-0.02) Anion Gap 8.0 mmol/L (3-11) Est Creatinine Clear Calc Drug Dose 86.6 ml/min Estimated GFR () 103.2 Estimated GFR (Non- 89.0 BUN/Creatinine Ratio 22.7 (10-20) Calcium Level 9.6 mg/dl (8.5-10.1) Total Bilirubin 0.3 mg/dl (0.2-1) Aspartate Amino Transf (AST/SGOT) 25 U/L (15-37) Alanine Aminotransferase (ALT/SGPT) 21 U/L (12-78) Alkaline Phosphatase 56 U/L (45-117) Total Protein 7.6 gm/dl (6.4-8.2) Albumin 4.3 gm/dl (3.4-5.0) Globulin 3.3 gm/dl (2.5-4.0) Albumin/Globulin Ratio 1.3 (0.9-2) Lipase 207 U/L (73-393) Chemistry Specimen Hemolysis Medications Administered Medications (Trade) Dose Ordered Sig/Dylan Route Start Time Stop Time Status Last Admin Dose Admin Morphine Sulfate (MoRPHine SULFATE INJ) 4 mg NOW ONCE IV 07/30/17 22:15 07/30/17 22:16 DC 07/30/17 22:26 4 MG Sodium Chloride 1,000 ml @ 999 mls/hr Q1H1M ONCE IV 07/30/17 22:15 07/30/17 23:15 DC 07/30/17 22:26 999 MLS/HR Ondansetron HCl (Zofran Inj) 4 mg NOW STAT IV 07/30/17 22:04 07/30/17 22:07 DC 07/30/17 22:26 4 MG Ondansetron HCl (Zofran Inj) 4 mg NOW STAT IV 07/31/17 00:20 07/31/17 00:21 DC 07/31/17 00:26 4 MG ED Course Physical exam and history were performed. Nursing notes, EMR, and Medication List were personally reviewed. Patient appears to have bilateral lower abdominal tenderness that is reportedly worse on the right when compared to the left. The patient indicates that she has had symptoms like this in the past. She declined pelvic exam. IV access was established and labs are obtained. The patient was hydrated and medicated as above. Because of her symptoms and history I did elect to perform ultrasound and order a CT scan. The patient's blood work is as above and was reviewed. She does not have a significantly elevated white blood cell count, gross anemia, bandemia, or significant electrolyte imbalance. Lipase and transaminases are nondiagnostic. Her urine is without evidence of infection or . Her ultrasound is as above and was without acute findings. The patient was reevaluated multiple times with a course of her ER stay. She did not wish to drink her contrast for her CT scan, and after roughly 3 hours of stay in the emergency department indicated that she no longer wished to have a CT scan performed. I had a lengthy and extensive conversation with the patient regarding this. She does have tenderness on palpation in the lower abdomen, and I explained that a CT scan was reasonable to rule out an acute abdominal process. The patient voiced that her discomfort is consistent with ovarian cysts, and declined further intervention. She did have a CT scan 2 weeks ago that did not show acute findings. She requested immediate discharge from the ER without further intervention. She voiced that she understands the possible risks associated with declining CT scan. The patient was given discharge instructions as below. She is to [facility] tomorrow for a recheck. She was certainly invited back to the ER with any new, worsening, or concerning symptoms. The chart was completed utilizing [employer] Speech Voice Recognition Software. Grammatical errors, random word insertions, pronoun errors, and incomplete sentences are an occasional consequence of this system due to software limitations, ambient noise, and hardware issues. Any formal questions or concerns about the content, text, or information contained within the body of this dictation should be directly addressed to the provider for clarification. . Medical Decision Differential diagnosis: Etiologies such as appendicitis, diverticulitis, PUD, biliary pathology, UTI, pancreatitis, obstruction, mesenteric ischemia, aortic pathology, infections, inflammatory bowel disease, renal colic, as well as others were entertained. Impression Primary Impression: Lower abdominal pain Departure Information Dispostion Home / Self-Care Condition GOOD Forms HOME CARE DOCUMENTATION FORM, IMPORTANT VISIT INFORMATION Patient Instructions My [facility] Additional Instructions You were seen and evaluated today on an emergency basis only. This is not a substitute for, or an effort to provide, complete comprehensive medical care. It is not possible to recognize and treat all injuries or illnesses in a single emergency department visit. For this reason it is recommended that you followup with your primary care physician and ASSOCIATE PROFESSOR OF ARCHAEOLOGY for ongoing care and evaluation. For baseline pain relief you may alternate ibuprofen and acetaminophen every 4 hours for pain control. Take 600 mg ibuprofen (Advil) and then 4 hours later take 1000 mg acetaminophen (Tylenol). Do not take more than 3000 mg acetaminophen in a single day. You are welcome to return to the emergency department anytime with new, worsening, or concerning symptoms.
--- NOTE | 2017-07-31 07:10 | DIAGNOSTIC IMAGING REPORT ---
ULTRASOUND OF THE PELVIS CLINICAL HISTORY: Left pelvic pain. Nausea. COMPARISON STUDY: Pelvic CT dated 07/14/2017. TECHNIQUE: Real-time, grayscale, and color flow sonography of the pelvis is performed transabdominally. Images are reviewed in the transverse and longitudinal planes. FINDINGS: Uterus: The uterus is normal in size and echotexture, measuring 6.6 x 2.9 x 4.6 cm. Endometrium: The endometrium is normal in appearance, and the endometrial stripe is normal in thickness measuring up to 0.4 cm. Ovaries: The ovaries are normal in size and morphology. The right ovary measures 2.3 x 1.7 x 1.3 cm and the left ovary measures 2.7 x 1.6 x 3.0 cm. Small follicles are noted. Normal Doppler waveforms are shown within both ovaries. Pelvis: There is no free fluid in the cul-de-sac. No concerning adnexal lesion is seen. Intraluminal debris is incidentally noted in the bladder. IMPRESSION: 1. Unremarkable sonographic assessment of the uterus and ovaries. 2. Intraluminal debris is noted in the bladder. Correlation with urinalysis will be required. Electronically signed by: Chris Luevano M.D. 07/31/2017 7:09 AM Dictated Date/Time: 07/31/2017 7:07 AM
== END 2017-07-31 01:06 | disposition home or self-care (01) ==
LOC: C.EDB 21:31
DX: R10.31 Right lower quadrant pain (principal); J45.909 Unspecified asthma, uncomplicated; G47.419 Narcolepsy without cataplexy; Z80.9 Family history of malignant neoplasm, unspecified; Z82.49 Family history of ischemic heart disease and other diseases of the circulatory system; Z79.899 Other long term (current) drug therapy